=== PATIENT | male | born 1950 | race Caucasian/White ===

== ENCOUNTER 2021-10-15 12:35 | Inpatient (IN) ==
[2021-10-15] MEDS ORDERED: Acetaminophen 325 MG TABLET PO PRN (17:01)
[2021-10-15] MEDS ORDERED: *HR* HYDROcodone/Acet 5/325 mg TABLET PO PRN (17:01)
[2021-10-15] MEDS ORDERED: *HR* HYDROcodone/Acet 10/325 mg TABLET PO PRN (17:07)
[2021-10-15] MEDS ORDERED: *HR* Dextrose 50 % in Water (Syg) 50 ML SYRINGE IVP PRN (17:08)
[2021-10-15] MEDS ORDERED: Dextrose Gel 15 GM/37.5 ML TUBE PO PRN ×2 (17:08)
[2021-10-15] MEDS ORDERED: D5% in Water 1,000 ML IVC PRN (17:08)
[2021-10-15] MEDS ORDERED: ACET PO SCH (18:00)
[2021-10-15] MEDS ORDERED: HYDROCODONE PO SCH (18:00)
[2021-10-15] MEDS: Sennosides/Docusate Sodium TABLET PO SCH (20:11)
[2021-10-15] MEDS: cephALEXin 500 MG CAPSULE PO SCH (20:11)
[2021-10-15] MEDS: Insulin LISPRO 300 UNITS/3 ML VIAL SUBQ SCH (20:11)
[2021-10-15] MEDS: *HR* Metformin 500 MG TABLET PO SCH (20:11)
[2021-10-15] MEDS: Gabapentin 300 MG CAPSULE PO SCH (20:11)
[2021-10-15] MEDS: carvediloL 6.25 MG TABLET PO SCH (20:11)
[2021-10-16 05:10] LABS: Basophils % 0.2 %; Eosinophils # 0.1 K/mcL (0.0-0.6); Eosinophils % 0.4 %; Hematocrit 29.9 % (37.5-50.1); Hemoglobin 9.6 g/dL (12.9-16.9); Immature Granulocytes % 0.9 % (0-4); Lymphocytes % 12.3 %; Mean Corpuscular HGB Conc 32.1 g/dL (31.6-35.5); Mean Corpuscular Volume 87.2 fL (83.0-100.0); Mean Platelet Volume 10.8 fL (9.4-12.4); Monocytes % 6.2 %; Platelet Count 272 K/mcL (140-400); Red Blood Count 3.43 M/mcL (4.19-5.50); Red Cell Distribution Width 13.7 % (11.5-14.5); White Blood Count 16.3 K/mcL (4.3-11.1)
[2021-10-16 05:19] LABS: BUN/Creatinine Ratio 15 (6-26); Blood Urea Nitrogen 22 mg/dL (8-23); Calcium 7.6 mg/dL (8.6-10.3); Carbon Dioxide 27 mEq/L (23-29); Chloride 101 mEq/L (98-107); Glucose 142 mg/dL (70-105); Osmolality,Calculated 284 (280-300); Potassium 3.9 mEq/L (3.5-5.1); Sodium 134 mEq/L (136-145); eGFR For African Americans > 60 (> 60); eGFR For Non-African Americans 50 (> 60)
[2021-10-16] MEDS: *HR* Enoxaparin 40 MG/0.4 ML SYRINGE SQ SCH (06:10)
[2021-10-16] MEDS: *HR* Metformin 500 MG TABLET PO SCH ×2 (07:39→17:28)
[2021-10-16] MEDS: carvediloL 6.25 MG TABLET PO SCH ×2 (07:39→20:17)
[2021-10-16] MEDS: cephALEXin 500 MG CAPSULE PO SCH ×4 (07:39→20:18)
[2021-10-16] MEDS: Gabapentin 300 MG CAPSULE PO SCH ×3 (07:40→20:18)
[2021-10-16] MEDS: *HR* Glimepiride 4 MG TABLET PO SCH ×2 (07:41→17:28)
[2021-10-16] MEDS: Insulin LISPRO 300 UNITS/3 ML VIAL SUBQ SCH ×4 (07:41→20:22)
[2021-10-16] MEDS: Sennosides/Docusate Sodium TABLET PO SCH ×2 (08:10→20:18)
[2021-10-16 08:37] LABS: Estimated Average Glucose 189 mg/dl; Hemoglobin A1C 8.2 %
[2021-10-16] MEDS: Aspirin Enteric Coated 81 MG Tablet PO SCH (10:03)
[2021-10-16] MEDS: amLODIPine 5 MG TABLET PO SCH (10:05)
[2021-10-16] MEDS: allopurinoL 300 MG TABLET PO SCH (10:06)
[2021-10-17] MEDS: *HR* Enoxaparin 40 MG/0.4 ML SYRINGE SQ SCH (06:46)
[2021-10-17] MEDS: Aspirin Enteric Coated 81 MG Tablet PO SCH (07:34)
[2021-10-17] MEDS: carvediloL 6.25 MG TABLET PO SCH (07:34)
[2021-10-17] MEDS: *HR* Metformin 500 MG TABLET PO SCH (07:34)
[2021-10-17] MEDS: allopurinoL 300 MG TABLET PO SCH (07:34)
[2021-10-17] MEDS: amLODIPine 5 MG TABLET PO SCH (07:34)
[2021-10-17] MEDS: Gabapentin 300 MG CAPSULE PO SCH (07:35)
[2021-10-17] MEDS: *HR* Glimepiride 4 MG TABLET PO SCH (07:35)
[2021-10-17] MEDS: cephALEXin 500 MG CAPSULE PO SCH (07:35)
[2021-10-17] MEDS: Insulin LISPRO 300 UNITS/3 ML VIAL SUBQ SCH (07:36)
[2021-10-17] MEDS: Sennosides/Docusate Sodium TABLET PO SCH (07:36)
[2021-10-17 07:47] VITALS: BP 169/74; PULSE 83; RESP 18; TEMP 98; O2SAT 99
== END 2021-10-17 10:40 | disposition home health service (06) | DRG 683 ==
LOC: INPGRE 14:48
PROVIDERS: ADMIT Family Medicine; ATTEND Family Medicine

== ENCOUNTER 2022-02-11 17:49 | Observation (INO) ==
[2022-02-11] MEDS ORDERED: *HR* Dextrose 50 % in Water (Syg) 50 ML SYRINGE ONE (18:06)
[2022-02-11 18:25] LABS: Basophils % 0.2 %; Eosinophils % 0.2 %; Hematocrit 37.2 % (37.5-50.1); Hemoglobin 12.4 g/dL (12.9-16.9); Immature Granulocytes % 0.4 % (0-4); Lymphocytes # 1.3 K/mcL (0.6-4.6); Lymphocytes % 9.8 %; Mean Corpuscular HGB Conc 33.3 g/dL (31.6-35.5); Mean Corpuscular Hemoglobin 29.1 pg (28.0-33.3); Mean Corpuscular Volume 87.3 fL (83.0-100.0); Mean Platelet Volume 11.8 fL (9.4-12.4); Monocytes # 1.5 K/mcL (0.0-1.3); Monocytes % 10.9 %; Neutrophils # 10.7 K/mcL (1.6-8.9); Platelet Count 195 K/mcL (140-400); Red Blood Count 4.26 M/mcL (4.19-5.50); Red Cell Distribution Width 14.6 % (11.5-14.5); Segmented Neutrophils % 78.5 %; White Blood Count 13.6 K/mcL (4.3-11.1)
[2022-02-11] MEDS ORDERED: *HR* Dextrose 50 % in Water (Syg) 50 ML SYRINGE IVP ONE ×3 (18:29→21:49)
[2022-02-11 18:36] LABS: Albumin 4.3 g/dL (3.5-5.7); Bilirubin,Total 0.4 mg/dL (0.3-1.0); Calcium 9.5 mg/dL (8.6-10.3); Globulin 4.2 g/dL (2.4-3.5); Magnesium 1.9 mg/dL (1.6-2.6); Potassium 3.8 mEq/L (3.5-5.1); Total Protein 8.5 g/dL (6.4-8.9)
[2022-02-11] MEDS ORDERED: D5% in 0.9% NACL 1,000 ML IVC SCH ×3 (19:00→21:49)
[2022-02-11] MEDS ORDERED: Naloxone 0.4 MG/ML INJ IVP PRN (21:49)
[2022-02-11] MEDS ORDERED: Mag Hydrox/Al Hydrox/Simeth 30 ML UDC PO PRN (21:49)
[2022-02-11] MEDS ORDERED: MOM Conc 10 ML UD.LIQ PO PRN (21:49)
[2022-02-11] MEDS ORDERED: Ondansetron ODT 4 MG TAB.RAPDIS SL PRN (21:49)
[2022-02-11] MEDS ORDERED: Melatonin 3 MG TABLET PO PRN (21:49)
[2022-02-11] MEDS: D5% in 0.9% NACL 1,000 ML IVC SCH (22:15)
[2022-02-12] MEDS ORDERED: *HR* Dextrose 50 % in Water (Syg) 50 ML SYRINGE IVP ONE (00:06)
[2022-02-12] MEDS: D5% in 0.9% NACL 1,000 ML IVC SCH ×2 (01:30→08:12)
[2022-02-12 05:12] LABS: Calcium 8.6 mg/dL (8.6-10.3); Magnesium 2.1 mg/dL (1.6-2.6); Potassium 3.9 mEq/L (3.5-5.1)
[2022-02-12] MEDS: *HR* Heparin 5,000 UNIT/ML VIAL SQ SCH ×2 (05:59→17:36)
[2022-02-12] MEDS: *HR* Pioglitazone 30 MG TABLET PO SCH (07:21)
[2022-02-12] MEDS: Metoprolol 100 MG TABLET PO SCH ×2 (08:11→20:41)
[2022-02-12] MEDS: Gabapentin 300 MG CAPSULE PO SCH ×2 (08:12→20:41)
[2022-02-12] MEDS: Aspirin Enteric Coated 81 MG Tablet PO SCH (08:12)
[2022-02-12] MEDS: allopurinoL 300 MG TABLET PO SCH (08:12)
[2022-02-12 12:23] LABS: Calcium 8.6 mg/dL (8.6-10.3); Potassium 4.1 mEq/L (3.5-5.1)
[2022-02-12 12:30] LABS: Bilirubin,Urine Negative (Negative); Blood,Urine Small (Negative); Clarity,Urine Clear (Clear); Color,Urine Yellow (Yellow); Glucose,Urine (UA) Normal (Normal); Ketones,Urine Negative (Negative); Leukocyte Esterase,Urine Moderate (Negative); Nitrite,Urine Positive (Negative); Protein,Urine 30 mg/dL (Neg-Trace); Specific Gravity,Urine 1.015 (1.010-1.025); Urobilinogen,Urine Normal (Normal)
[2022-02-12] MEDS: Doxycycline 100 MG CAPSULE PO SCH ×2 (12:52→20:42)
[2022-02-12 13:40] LABS: Bacteria,Urine Many per hpf (None-Few); WBC,Urine 50-100 per hpf (0-3)
[2022-02-12] MEDS ORDERED: D5% in Water 1,000 ML IVC PRN (17:13)
[2022-02-12] MEDS ORDERED: *HR* Dextrose 50 % in Water (Syg) 50 ML SYRINGE IVP PRN (17:13)
[2022-02-12] MEDS ORDERED: Dextrose 4 GM Chewable Tablets PO PRN ×2 (17:13)
[2022-02-12] MEDS: Insulin LISPRO 300 UNITS/3 ML VIAL SUBQ SCH (17:38)
[2022-02-12 19:48] LABS: Adenovirus Not Detected (Not Detect); Bordetella Pertussis Not Detected (Not Detect); Chlamydophila pneumoniae Not Detected (Not Detect); Coronavirus 229E Not Detected (Not Detect); Coronavirus HKU1 Not Detected (Not Detect); Coronavirus NL63 Not Detected (Not Detect); Coronavirus OC43 Not Detected (Not Detect); Human Metapneumovirus Not Detected (Not Detect); Human Rhinovirus/Enterovirus Not Detected (Not Detect); Influenza A Subtype 2009 H1 Not Detected (Not Detect); Influenza B Not Detected (Not Detect); Mycoplasma pneumoniae Not Detected (Not Detect); Parainfluenza Virus 1 Not Detected (Not Detect); Parainfluenza Virus 2 Not Detected (Not Detect); Parainfluenza Virus 3 Not Detected (Not Detect); Parainfluenza Virus 4 Not Detected (Not Detect); Respiratory Syncytial Virus Not Detected (Not Detect); SARS-CoV-2 Not Detected (Not Detect)
[2022-02-12 19:59] LABS: Estimated Average Glucose 140 mg/dl; Hemoglobin A1C 6.5 %
[2022-02-12] MEDS ORDERED: Insulin LISPRO 300 UNITS/3 ML VIAL SUBQ SCH (21:00)
[2022-02-13] MEDS: *HR* Heparin 5,000 UNIT/ML VIAL SQ SCH (05:32)
[2022-02-13 05:50] LABS: Hematocrit 31.6 % (37.5-50.1); Hemoglobin 10.2 g/dL (12.9-16.9); Mean Corpuscular HGB Conc 32.3 g/dL (31.6-35.5); Mean Corpuscular Hemoglobin 28.8 pg (28.0-33.3); Mean Corpuscular Volume 89.3 fL (83.0-100.0); Mean Platelet Volume 11.3 fL (9.4-12.4); Platelet Count 181 K/mcL (140-400); Red Blood Count 3.54 M/mcL (4.19-5.50); Red Cell Distribution Width 14.3 % (11.5-14.5); White Blood Count 8.7 K/mcL (4.3-11.1)
[2022-02-13 06:12] LABS: Albumin 3.6 g/dL (3.5-5.7); Bilirubin,Total 0.5 mg/dL (0.3-1.0); Calcium 8.8 mg/dL (8.6-10.3); Globulin 3.7 g/dL (2.4-3.5); Potassium 4.3 mEq/L (3.5-5.1); Total Protein 7.3 g/dL (6.4-8.9)
[2022-02-13] MEDS: Metoprolol 100 MG TABLET PO SCH (08:10)
[2022-02-13] MEDS: Aspirin Enteric Coated 81 MG Tablet PO SCH (08:10)
[2022-02-13] MEDS: Doxycycline 100 MG CAPSULE PO SCH (08:10)
[2022-02-13] MEDS: allopurinoL 300 MG TABLET PO SCH (08:10)
[2022-02-13] MEDS: Gabapentin 300 MG CAPSULE PO SCH (08:10)
[2022-02-13] MEDS: Insulin LISPRO 300 UNITS/3 ML VIAL SUBQ SCH ×2 (08:11→11:35)
[2022-02-13] MEDS: *HR* Pioglitazone 30 MG TABLET PO SCH (08:47)
[2022-02-13 11:38] VITALS: BP 170/88; PULSE 75; RESP 18; TEMP 98.6; O2SAT 95
== END 2022-02-13 14:55 | disposition home or self-care (01) ==
LOC: EMEROOGRE 17:49 → INPGRE 17:49
PROVIDERS: ADMIT Family Medicine; ATTEND Family Medicine